=== PATIENT | female | born 1955 | race Caucasian/White ===

== ENCOUNTER → 2025-04-17 06:46 | Outpatient (REF) | payer MEDICARE, OTHER, SELFPAY ==
[2025-04-17 10:37] LABS: ALT (SGPT) 21 U/L (0-35); AST (SGOT) 26 U/L (14-36); Albumin 4.5 g/dl (3.5-5.0); Alkaline Phosphatase 54 U/L (38-126); Blood Urea Nitrogen 20 mg/dl (7-17); Carbon Dioxide 27 mmol/L (22-30); Chloride 111 mmol/L (98-107); Glucose 95 mg/dl (70-99); HDL Cholesterol 51 mg/dl; LDL Cholesterol, Calculated 114 mg/dl; Potassium 4.2 mmol/L (3.5-5.1); Sodium 144 mmol/L (135-145); Total Bilirubin 0.5 mg/dl (0.2-1.3); Total Cholesterol 189 mg/dl (50-199); Total Protein 7.4 g/dl (6.3-8.2); Triglyceride 124 mg/dl (10-149); Very Low Density Lipoprotein 24 mg/dl (0-30); eGFR > 60.00
== END ==
LOC: HWLAB 06:46
PROVIDERS: ATTENDING PHYSICIAN Nurse Practitioner
DX: Z76.89 Persons encountering health services in other specified circumstances (principal); Z82.49 Family history of ischemic heart disease and other diseases of the circulatory system; R93.89 Abnormal findings on diagnostic imaging of other specified body structures; M54.2 Cervicalgia
CPT/HCPCS: 36415; 71046; 72052; 80053; 80061